=== PATIENT | female | born 1970 | race Caucasian/White ===

== ENCOUNTER 2024-03-24 09:03 | Outpatient (CLI) | payer MEDICARE, MEDICAID | END 2024-03-24 23:59 | disposition home or self-care (01) | LOC: CARD DIAG 09:03 | PROVIDERS: ATTEND Family Medicine | DX: I34.0 Nonrheumatic mitral (valve) insufficiency (principal); M79.89 Other specified soft tissue disorders; R60.0 Localized edema | CPT/HCPCS: 93306 ==